=== PATIENT | female | born 1940 | race Two or more races ===

== ENCOUNTER 2016-08-28 06:14 | Day surgery (SDC) | payer OTHER ==
[~2016-08-28] VITALS: Ht 149.9 cm; Wt 56.8 kg
[2016-08-28] VITALS (24 sets, daily range): BP systolic 100–162; BP diastolic 55–70; PULSE 48–67; RESP 14–24; Ht 149.9 cm; Wt 56.8 kg
[2016-08-28 07:22] LABS: INR 0.95; PROTIME 12.7 Sec (12.2-14.2)
[2016-08-28 07:23] LABS: PARTIAL THROMBOPLASTIN TIME 27.4 Sec (25.0-35.0)
--- NOTE | 2016-08-28 07:26 | RADRPT ---
PROCEDURE: CHEST 1VW CLINICAL INDICATION: Preoperative TECHNIQUE: Single frontal view of the chest was obtained COMPARISON: None. FINDINGS: The cardiac size is normal. Aortic vascular calcifications are demonstrated. There is no pulmonary vascular congestion. The lungs are clear. No consolidation, effusion, or pneumothorax. Mild degenerative changes of the visualized osseous structures are visualized. IMPRESSION: 1. No acute cardiopulmonary process. 2. Atherosclerosis. RPTAT:PP .Leon Bennett MD, MD Date Time Electronically viewed and signed by .Leon Bennett MD, MD on 08/28/2016 07:26 .V/
[2016-08-28 07:32] LABS: CREATININE 0.57 mg/dl (0.44-1.00); POTASSIUM 4.1 mmol/L (3.5-5.1)
[2016-08-28 07:33] LABS: CALCIUM 9.1 mg/dl (8.4-10.2)
[2016-08-28 07:48] LABS: BASOPHILS % 0.3 % (0.0-2.0); EOSINOPHILS # 0.3 10^3/ul (0.0-0.5); EOSINOPHILS % 5.4 % (0.0-7.0); HEMATOCRIT 40.1 % (37.0-47.0); HEMOGLOBIN 13.5 g/dl (12.0-16.0); LYMPHOCYTES # 2.5 10^3/ul (0.8-2.9); MEAN CORPUSCULAR HEMOGLOBIN 30.9 pg (29.0-33.0); MEAN CORPUSCULAR HGB CONC 33.7 g/dl (32.0-37.0); MEAN CORPUSCULAR VOLUME 91.9 fl (82.0-101.0); MEAN PLATELET VOLUME 9.4 fl (7.4-10.4); MONOCYTE # 0.5 10^3/ul (0.3-0.9); MONOCYTES % 7.8 % (0.0-11.0); NEUTROPHIL # 2.5 10^3/ul (1.6-7.5); NEUTROPHILS % 42.5 % (39.0-77.0); PLATELET COUNT 226 10^3/UL (140-440); RED BLOOD COUNT 4.36 10^6/ul (4.20-5.40); RED CELL DISTRIBUTION WIDTH 13.8 % (11.5-14.5); UNCORRECTED WBC 5.8 10^3/ul (4.8-10.8); WHITE BLOOD COUNT 5.8 10^3/ul (4.8-10.8)
[2016-08-28] MEDS ORDERED: VERAPAMIL 5 MG INJ ONE (08:06)
[2016-08-28] MEDS ORDERED: HEPARIN 1000 UNITS/ML 10 ML INJ ONE (08:06)
[2016-08-28] MEDS ORDERED: LIDOCAINE 1% (MDV) 20 ML INJ ONE (08:06)
[2016-08-28] MEDS ORDERED: NITROGLYCERIN (IC) 100 MCG/ML INJ ONE ×2 (08:06→08:38)
[2016-08-28] MEDS ORDERED: IODIXANOL LOCM 100 ML BTL ONE (08:06)
[2016-08-28] MEDS ORDERED: MIDAZOLAM 1 MG/ML 2 ML INJ ONE (08:08)
[2016-08-28] MEDS ORDERED: FENTAnyl 50 MCG/ML VIAL ONE (08:08)
[2016-08-28 08:17] LABS: CONDITION 1
--- NOTE | 2016-08-28 08:45 | PDOCDIS ---
Discharge Instructions CONDITION Patient Condition: Good HOME CARE INSTRUCTIONS: Diet Instructions: Reduced Sodium ACTIVITY: Activity Restrictions Comment: no lifting more then 5 pounds left arm for 3 days, no driving x 1 day Torres Martinez DO Aug 28, 2016 08:45
[2016-08-28] MEDS ORDERED: ONDANSETRON 4 MG INJ IV PRN (09:00)
[2016-08-28] MEDS ORDERED: ACETAMINOPHEN 325 MG TAB PO PRN (09:00)
[2016-08-28] MEDS ORDERED: AL HYDROX/MG HYDROX/SIMETH 30 ML CUP PO PRN (09:00)
[2016-08-28] MEDS ORDERED: ACETAMINOPHEN 325 MG TAB ONE (09:14)
--- NOTE | 2016-08-28 17:57 | CARRPT ---
DATE OF PROCEDURE: 08/28/2016 PROCEDURES: 1. Left heart catheterization. 2. Right and left coronary angiogram. 3. Interpretation and supervision of right and left coronary angiogram 4. Left radial artery approach. PATIENT HISTORY: This is a 75-year-old female with history of severe aortic stenosis who presents f or coronary angiogram prior to surgery. FINDINGS: Aortic pressure was 120/60. CORONARY ANATOMY: 1. Left main is a large caliber vessel with no significant disease. 2. Circumflex is a large caliber vessel and is dominant. There is distal 10% stenosis. 3. LAD is a medium caliber vessel with distal 10% stenosis. 4. RCA is a small caliber vessel, is nondominant with distal 10% stenosis. DESCRIPTION OF PROCEDURE: The patient was brought to the labor contractor after informed consent. The david ent was prepped and draped as per protocol. Left radial access was obtained. A 5/6-Bahamian sheath w as placed in the left radial artery. A 5-Bahamian JL3.5 diagnostic catheter was used to engage the le ft main and angiogram was performed. We next used a 5-Bahamian JR4 catheter in an attempt to engage t he RCA. The patient went dampening with engagement, so we did disengage and did a nonselective concepcion ogram, which demonstrated a small sized vessel with no significant disease in the RCA. All catheter s and wires were removed. There were no immediate complications. DIAGNOSIS: 1. Aortic stenosis by history. 2. Minimal nonobstructive epicardial coronary artery disease. COMPLICATIONS: None. ESTIMATED BLOOD LOSS: Minimal. CONTRAST USED: 30 mL. RECOMMENDATIONS: CT surgery evaluation for aortic stenosis. Dictated By: JOSÉ MIGUEL HESS/MARIMAR Conf#: [id number] DID#: [id number]
--- NOTE | 2016-08-29 14:21 | RADRPT ---
Vent Rate: 51 bpm RR Interval: 0 msec MI Interval: 140 msec QRS Duration: 88 msec QT Interval: 444 msec QTC Interval: 409 msec P-R-T [place]: 66 - -32 - 51 degrees Sinus bradycardia Left axis deviation Abnormal ECG Electronically Signed By: Torres Martinze [id number]
== END 2016-08-28 13:15 | disposition home or self-care (01) ==
LOC: SDS 06:14
PROVIDERS: ATTEND Internal Medicine Cardiovascular Disease
DX: I25.10 Atherosclerotic heart disease of native coronary artery without angina pectoris (principal)
CPT/HCPCS: 71010; 80048; 85025; 85610; 85730; 93005; 93454; C1769; C1887; J1644; J2250; J3010; Q9967; Z7610

== ENCOUNTER 2017-06-29 10:25 | Emergency (ER) | payer OTHER ==
[~2017-06-29] VITALS: Ht 157.5 cm; Wt 55.7 kg
[2017-06-29 10:33] VITALS: Ht 157.5 cm; Wt 55.7 kg
[2017-06-29] MEDS ORDERED: ACETAMINOPHEN 500 MG TAB PO STA (11:32)
--- NOTE | 2017-06-29 12:20 | RADRPT ---
PROCEDURE: XR Chest. CLINICAL INDICATION: Chest pain. Trauma. . TECHNIQUE: Single frontal chest x-ray. COMPARISON: 08/28/2016 FINDINGS: The lungs are clear of acute infiltrates, edema, effusions, or masses. Calcific atherosclerosis of t he aorta is present.. The cardiomediastinal silhouette is unremarkable. The osseous structures are intact. IMPRESSION: No acute cardiopulmonary disease. RPTAT: JJ .Nick Hurd MD, MD Date Time Electronically viewed and signed by .Nick Hurd MD, MD on 06/29/2017 12:20 .L/
[2017-06-29] MEDS ORDERED: TRAM-40 PO (12:23)
--- NOTE | 2017-06-29 12:26 | ERD ---
ER Documentation Chief Complaint Chief Complaint Patient complains of chest pain x 5 days HPI 76-year-old female presents with left upper chest wall pain after falling 5 days ago. She denies any fevers, vomiting, hemoptysis, weakness, neck pain, loss of consciousness. Her complaints are isolated to her left upper chest wall. She is taking ibuprofen for pain without significant relief. ROS All systems reviewed and are negative except as per history of present illness. Medications Home Meds Active Scripts Tramadol Hcl* (Ultram*) 50 Mg Tablet, 50 MG PO Q6H Y for PAIN, #15 TAB Prov:TEJA GONZALES MD 06/29/17 Allergies Allergies: Coded Allergies: No Known Allergy (Unverified , 06/29/17) PMhx/Soc History of Surgery: Yes (Hysterectomy) Anesthesia Reaction: No Hx Neurological Disorder: No Hx Respiratory Disorders: No Hx Cardiac Disorders: Yes (pending Aortic Valve replacement) Hx Psychiatric Problems: No Hx Miscellaneous Medical Probl: No Hx Alcohol Use: No Hx Substance Use: No Hx Tobacco Use: No Smoking Status: Never smoker Physical Exam Vitals Vital Signs Date Time Temp Pulse Resp B/P Pulse Ox O2 Delivery O2 Flow Rate FiO2 06/29/17 10:33 98.7 66 20 123/60 98 Physical Exam Const: [] Alert, [id number]. Head: Atraumatic Eyes: Normal Conjunctiva ENT: Normal External Ears, Nose and Mouth. Neck: Full range of motion..~ No meningismus. Resp: Clear to auscultation bilaterally. Tender left upper anterior chest wall. No appreciable crepitance, deformities and no ecchymosis. No skin changes. Cardio: Regular rate and rhythm, no murmurs Abd: Soft, non tender, non distended. Normal bowel sounds Skin: No petechiae or rashes Back: No midline or flank tenderness Ext: No cyanosis, or edema Neur: Awake and alert Psych: Normal Mood and Affect Results 24 hrs Current Medications Medications (Trade) Dose Ordered Sig/Yareli Route PRN Reason Start Time Stop Time Status Last Admin Dose Admin Acetaminophen (Tylenol Tab) 500 mg ONCE STAT PO 06/29/17 11:32 06/29/17 11:34 DC 06/29/17 11:38 Procedures/MDM EKG: Rate/Rhythm: [Normal Sinus Rhythm] rate equals 62 QRS, ST, T-waves: [No changes consistent w/ acute ischemia] Impression: [No evidence of ischemia or arrhythmia]. Impression-normal EKG Chest X-ray 1V Interpreted by me: Soft Tissue: No acute abnormalities Bones: No acute abnormalities Mediastinum/Cardiac Silhouette/Lungs: [No acute abnormalities] impression- normal 1 view chest x-ray Presents with 5 day history of left upper chest wall pain after a fall. There is no evidence of hemothorax or pneumothorax, signs of fracture, hypoxemia, respiratory distress or additional emergent causes of presenting complaints. She will treated with tramadol and further observation at home, primary care follow-up and return precautions. The patient was stable with no new complaints during the ER course. Clinically, there is no current evidence to suggest meningitis, sepsis, acute abdomen, pneumonia, acute coronary syndrome, pulmonary embolism, or any other emergent condition appearing to require further evaluation or hospitalization. The patient should certainly return for any new or worsening symptoms per the aftercare instructions. They should otherwise follow-up with her primary care doctor for reevaluation this week. Departure Diagnosis: Primary Impression: Chest pain Chest pain type: unspecified Qualified Code: R07.9 - Chest pain, unspecified type Condition: Stable Patient Instructions: Chest Wall Contusion Additional Instructions: Examines normal hoy. Cheque otro vez con garcia doctor primario en el proximo lin or regresa para mas o nueva simptomas. TEJA GONZALES MD Jun 29, 2017 12:26
== END 2017-06-29 13:02 | disposition home or self-care (01) ==
LOC: FTE 10:25
DX: R07.89 Other chest pain (principal)
CPT/HCPCS: 71010; Z7502; Z7610